=== PATIENT | female | born 2000 | race African-American/Black ===

== ENCOUNTER 2023-06-24 22:52 | Emergency (ER) | payer OTHER ==
[~2023-06-24] VITALS: Ht 162.6 cm; Wt 56.7 kg
[2023-06-25 00:08] LABS: APPEARANCE,URINE CLEAR (CLEAR); BILIRUBIN,URINE NEGATIVE (NEGATIVE); BLOOD, URINE 1+ Ery/uL (NEGATIVE); COLOR,URINE YELLOW (YELLOW); KETONES,URINE TRACE mg/dL (NEGATIVE); LEUKOCYTE ESTERASE ,URINE NEGATIVE (NEGATIVE); NITRITE, URINE NEGATIVE (NEGATIVE); PROTEIN,URINE NEGATIVE (NEGATIVE); UGLUCOSE NEGATIVE (NEGATIVE); UROBILINOGEN,URINE 0.2 EU/dL (0.2)
[2023-06-25 00:11] LABS: ADD URINE CULTURE NO; BACTERIA,URINE Rare /HPF (None Seen); PREGNANCY TEST URINE QUAL NEGATIVE (NEGATIVE); SQUAMOUS EPITHELIAL CELL,UR Rare /HPF (None Seen); WBC,URINE 0-2 /HPF (0-3)
[2023-06-25] MEDS ORDERED: DOXY100C2 PO (02:23)
[2023-06-25] MEDS ORDERED: CEFTRIAXONE 500 MG VIAL ONE (02:29)
[2023-06-25] MEDS: CEFTRIAXONE 500 MG VIAL IM ONE (02:30)
[2023-06-25 02:40] VITALS: BP 100/75; TEMP 97.3; O2SAT 100
[2023-06-26 19:07] LABS: CHLAMYDIA TRACHOMATIS NAA Negative (Negative); NEISSERIA GONORRHOEAE NAA Negative (Negative)
== END 2023-06-25 02:41 | disposition home or self-care (01) ==
LOC: ER 22:52
DX: N89.8 Other specified noninflammatory disorders of vagina (principal); Z88.0 Allergy status to penicillin; Z88.5 Allergy status to narcotic agent
CPT/HCPCS: 99284; 84703; 81001; 87491; 87591; 96372; 87210; J0696